=== PATIENT | male | born 1990 | race Caucasian/White ===

== ENCOUNTER 2019-11-22 17:51 | Emergency (ER) | payer BC ==
[2019-11-22 18:08] VITALS: BP 138/78
[2019-11-22] MEDS ORDERED: DOXYcycline CAP(*) 100 MG PO ONE (18:27)
--- NOTE | 2019-11-22 18:30 | UC ---
Complaint Male HPI - HPI Summary HPI Summary: C/O right testicular pain x 4 days. No dysuria or urethral discharge. - History of Current Complaint Chief Complaint: [facility]CGU Stated Complaint: PERSONAL Hx Obtained From: Patient Onset/Duration: Gradual Onset, Lasting Days - 4, Still Present Timing: Constant Severity Initially: Mild Severity Currently: Moderate Pain Intensity: 4 Location: Testicle - right Character: Constant Pressure Aggravating Factor(s): Palpation Alleviating Factor(s): Nothing Associated Signs And Symptoms: Positive: Negative - Risk Factors Testicular Torsion: Negative - Allergies/Home Medications Allergies/Adverse Reactions: Allergies Allergy/AdvReac Type Severity Reaction Status Date / Time No Known Allergies Allergy Verified 11/22/19 17:58 Home Medications: Home Medications DOXYcycline CAP(*) [DOXYcycline 100MG CAP(*)] 100 mg PO BID #20 cap 11/22/19 [Rx ] Ibuprofen TAB* [Advil TAB*] 400 mg PO Q6H PRN 11/22/19 [History Confirmed ] PMH/Surg Hx/FS Hx/Imm Hx Previously Healthy: Yes - Surgical History Surgical History: None - Family History Known Family History: Positive: Hypertension - Social History Occupation: Employed Full-time Lives: With Family Alcohol Use: Occasionally Substance Use Type: None Smoking Status (MU): Smoker, Current Status Unknown Type: Cigars Review of Systems All Other Systems Reviewed And Are Negative: Yes Genitourinary: Positive: Vaginal/Penile Pain Is Patient Immunocompromised?: No Physical Exam Triage Information Reviewed: Yes Appearance: Well-Appearing, No Pain Distress, Well-Nourished Vital Signs: Initial Vital Signs Temp 98.3 F 11/22/19 18:00 Pulse 91 11/22/19 18:00 Resp 17 11/22/19 18:00 BP 138/78 11/22/19 18:00 Pulse Ox 100 11/22/19 18:00 Vital Signs Reviewed: Yes Eyes: Positive: Conjunctiva Clear Neck exam: Normal Respiratory Exam: Normal Cardiovascular Exam: Normal Male Genital Exam: Positive: No Hernia, Epididymal Tenderness - on the right. Negative: Erythema, Scrotum Tenderness (R), Scrotum Tenderness (L), Testicular Tenderness (R) - on the head of the epididymis., Testicular Tenderness (L) Musculoskeletal Exam: Normal Neurological Exam: Normal Psychological Exam: Normal Skin Exam: Normal Complaint Male Course/Dx - Differential Dx/Diagnosis Differential Diagnosis/HQI/PQRI: Epididymitis, Prostatitis, Testicular Torsion, Urinary Tract Infection Provider Diagnosis: Epididymitis Discharge ED - Sign-Out/Discharge Documenting (check all that apply): Patient Departure All imaging exams completed and their final reports reviewed: No Studies - Discharge Plan Condition: Stable Disposition: HOME Prescriptions: DOXYcycline CAP(*) [DOXYcycline 100MG CAP(*)] 100 mg PO BID #20 cap Patient Education Materials: Epididymitis (ED) Referrals: Stefan Felipe MD [Primary Care Provider] - - Billing Disposition and Condition Condition: STABLE Disposition: Home
[2019-11-24 14:15] LABS: Chlamydia trachomatis NAA Negative (Negative); Neisseria gonorrhoeae (GC) NAA Negative (Negative)
== END 2019-11-22 18:37 | disposition home or self-care (01) ==
LOC: UCCORT 17:51
DX: N45.1 Epididymitis (principal); F17.290 Nicotine dependence, other tobacco product, uncomplicated
CPT/HCPCS: 87491; 87591; 99202; A9270-GY; G0463